=== PATIENT | female | born 1935 ===

== ENCOUNTER 2017-02-18 13:23 | Outpatient (CLI) | payer OTHER | END 2017-02-18 13:48 | disposition home or self-care (01) | LOC: NUCLEAR 13:23 | DX: M81.0 Age-related osteoporosis without current pathological fracture (principal); N60.19 Diffuse cystic mastopathy of unspecified breast; N60.09 Solitary cyst of unspecified breast; N63.11 Unspecified lump in the right breast, upper outer quadrant; N63.10 Unspecified lump in the right breast, unspecified quadrant; Z12.31 Encounter for screening mammogram for malignant neoplasm of breast; E03.8 Other specified hypothyroidism; E04.1 Nontoxic single thyroid nodule; E04.2 Nontoxic multinodular goiter ==